=== PATIENT | female | born 1995 | race Caucasian/White ===

== ENCOUNTER 2021-04-17 06:36 | Inpatient (IN) | payer BC, SELFPAY ==
[2021-04-17] VITALS (103 sets, daily range): BP systolic 93–147; BP diastolic 53–119; PULSE 30–274; RESP 16; TEMP 35.9–37.7; O2SAT 72–100; BMI 30.2
--- NOTE | 2021-04-17 06:56 | PM.IMHP ---
H&P: HPI History of Present Illness Date/Time: 04/17/21 06:56 25-year-old 1 para 0 whose last menstrual period was 07/14/2020, EDC is 04/20/2021, confirmed by 10 week ultrasound presents at 39 and half weeks gestation for induction of labor secondary to elevated blood pressures. Baby has shown some decreased growth. heart tones have been reassuring. PIH labs will be drawn she is negative for group B strep Chief Complaint: mild hypertension at term Review of Systems Review of Systems: All systems reviewed & are unremarkable except as noted in HPI and below PMFSH Family History Family History Other No pertinent family history Social History Social History Substance use: current Spiritual care concerns: No Meds Home Medications and Allergies Home Medications Medication Instructions Recorded Confirmed Type No Home Medications 04/13/21 04/13/21 History Allergies Allergy/AdvReac Type Severity Reaction Status Date / Time No Known Allergies Allergy Verified 04/13/21 13:59 Exam Const: General: no acute distress Eyes: General: appearance normal, both eyes and all related structures Neck: Neck: supple and no JVD Thyroid: thyroid normal Resp: Effort & Inspection: normal respiratory effort Auscultation: clear to auscultation bilaterally Cardio: Rate: regular rate Rhythm: regular rhythm GI: Inspection: non-distended GI Palp: Yes Soft to palpation, No Tenderness to palpation present (GI) and No Guarding due to palpation present (GI) Auscultation: normal bowel sounds : External Female Exam: normal external appearance Speculum Exam - Vagina: normal appearance of the vagina Speculum Exam - Cervix: Cervical os closed ( cervix 2/80/1. AROM mac staining. FHTs reassuring) Bimanual exam- vagina & uterus: enlarged Skin: General skin exam: no rashes or lesions noted Extrem: General: normal to inspection and no edema Psych: Mental Status: mental status grossly normal Affect: normal affect Assessment and Plan Additional Plan impression: Term with mildly elevated blood pressure Plan: Medical for labor. Spontaneous vaginal delivery is expected. PIH labs will be drawn. She has an epidural candidate but is declining that if she can
[2021-04-17 07:35] LABS: Basophils Percent Auto 0.4 % (0.2-1.2); Eosinophils Percent Auto 0.4 % (0-4.4); Hematocrit 35.8 % (37.0-47.0); Hemoglobin 12.2 g/dL (12.0-15.0); Immature Granulocyte Absolute 0.03 K/mm3 (0.00-0.031); Immature Granulocyte Percent A 0.3 % (0-0.5); Lymphocytes Absolute Auto 2.64 K/mm3 (0.9-3.2); Lymphocytes Percent Auto 27.1 % (18.3-44.2); Mean Corpuscular HGB Conc 34.1 g/dl (32-36); Mean Corpuscular Hemoglobin 30.3 pg (26-34); Mean Corpuscular Volume 88.8 fl (80-100); Mean Platelet Volume 11.4 fl (7.4-10.4); Monocytes Absolute Auto 0.9 K/mm3 (0.1-0.6); Monocytes Percent Auto 8.9 % (2.6-8.5); Neutrophils Absolute Auto 6.1 K/mm3 (1.3-6.7); Neutrophils Percent Auto 62.9 % (45.5-73.1); Platelet Count Result 249 k/mm3 (150-375); Red Blood Count 4.03 M/mm3 (4.2-5.4); Red Cell Distribution Width 13.5 % (11.5-14.5); White Blood Count 9.8 K/mm3 (4.5-10.0)
[2021-04-17 07:47] LABS: Alanine Aminotransferase 15 U/L (4-35); Albumin Level 3.5 g/dL (3.5-5.1); Alkaline Phosphatase 180 U/L (38-126); Anion Gap 5 mmol/L (8-16); Aspartate Amino Transferase 20 U/L (14-36); Bilirubin,Total 0.3 mg/dL (0.2-1.3); Blood Urea Nitrogen 3 mg/dL (7-17); Calcium 8.8 mg/dL (8.4-10.2); Carbon Dioxide 22 mmol/L (22-30); Chloride 104 mmol/L (98-107); Estimated Glomerular Filt Rate > 60; Glucose 91 mg/dL (65-110); Potassium 3.7 mmol/L (3.4-5.0); Sodium 131 mmol/L (137-145)
[2021-04-17 07:50] LABS: Uric Acid 3.9 mg/dL (2.5-7.5)
[2021-04-17] MEDS: LACTATED RINGERS 1,000 ML 125 ML IV CONT ×2 (07:50→13:15)
[2021-04-17] MEDS: OXYTOCIN 30 UNITS/NS 500 ML 30 UNITS/500 ML BAG 6 UNITS IV CONT (07:56)
--- NOTE | 2021-04-17 08:41 | LDADM ---
This patient, Jose Salazar, was admitted to Labor/Delivery/Recovery 105 on 04/17/21 at 06:36. Plans for labor, pain management and were discussed with patient. Patient/family oriented to hospital policies and general routines including ID bracelet, bed and alarms, visiting hours, pain management, procedures, bathroom and other care routines, personal items, smoking policy, room service/diet and guest tray routines, security routines, and visiting hours. Patient/Family are encouraged to report perceived risks to care and to ask questions if they do not understand what they are told or what they should do. See OBIX for further documentation.
[2021-04-17 10:26] LABS: Rapid Plasma Reagin Non-Reactive (NonReactive)
--- NOTE | 2021-04-17 12:32 | PM.OBPNLAB ---
Pain Control Date/time seen: 04/17/21 12:32 Pain control: tolerating well and epidural Pelvic Exam Dilation (cm): 4 Effacement (%): 100 station: -1 Amniotic membrane status: Leaking Contractions Monitor mode: External
[2021-04-17] MEDS: fentaNYL CITRATE INJ (*CRX) 100 MCG/2 ML VIAL IV PUSH (13:14)
--- NOTE | 2021-04-17 13:44 | WPDANESEPPF ---
Anes - Initial Pre Proc Eval Date/Time: 04/17/21 13:44 Surgeon: Bryce Block MD Pre Op Diagnosis: Inducition of Labor Patient Data Age: 25 Gender: F Height: 1.6 m Weight: 77.5 kg Last Vital Signs Temp 35.9 C L 04/17/21 08:00 Pulse 63 04/17/21 13:43 BP 119/66 04/17/21 13:43 Pulse Ox 98 04/17/21 13:40 Allergies Allergy/AdvReac Type Severity Reaction Status Date / Time No Known Allergies Allergy Verified 04/13/21 13:59 Home Medications Medication Instructions Recorded Confirmed Type No Home Medications 04/13/21 04/13/21 History Laboratory Tests 04/17/21 04/17/21 04/17/21 07:23 07:23 07:23 WBC 9.8 K/mm3 K/mm3 (4.5-10.0) RBC 4.03 M/mm3 L M/mm3 (4.2-5.4) Hgb 12.2 g/dL g/dL (12.0-15.0) Hct 35.8 % L % (37.0-47.0) MCV 88.8 fl fl (80-100) MCH 30.3 pg pg (26-34) MCHC 34.1 g/dl g/dl (32-36) RDW 13.5 % % (11.5-14.5) Plt Count 249 k/mm3 k/mm3 (150-375) MPV 11.4 fl H fl (7.4-10.4) Immature Gran % (Auto) 0.3 % % (0-0.5) Neut % (Auto) 62.9 % % (45.5-73.1) Lymph % (Auto) 27.1 % % (18.3-44.2) [place] % (Auto) 8.9 % H % (2.6-8.5) Eos % (Auto) 0.4 % % (0-4.4) Baso % (Auto) 0.4 % % (0.2-1.2) Lymph # (Auto) 2.64 K/mm3 K/mm3 (0.9-3.2) [place] # (Auto) 0.9 K/mm3 H K/mm3 (0.1-0.6) Eos # (Auto) 0.0 K/mm3 K/mm3 (0-0.3) Baso # (Auto) 0.0 K/mm3 K/mm3 (0.0-0.1) Abs Immat Gran (auto) 0.03 K/mm3 K/mm3 (0.00-0.031) Absolute Neuts (auto) 6.1 K/mm3 K/mm3 (1.3-6.7) Absolute Nucleated RBC 0.0 K/mm3 K/mm3 (0.0-0.012) Nucleated RBC % 0.0 % % (0.0-0.2) Sodium Potassium Chloride Carbon Dioxide Anion Gap BUN Creatinine Estim Creat Clear Calc Estimated GFR Glucose Uric Acid 3.9 mg/dL mg/dL (2.5-7.5) Calcium Total Bilirubin AST ALT Alkaline Phosphatase Total Protein Albumin RPR Non-reactive (NonReactive) Blood Type Antibody Screen 04/17/21 04/17/21 07:23 07:23 WBC RBC Hgb Hct MCV MCH MCHC RDW Plt Count MPV Immature Gran % (Auto) Neut % (Auto) Lymph % (Auto) [place] % (Auto) Eos % (Auto) Baso % (Auto) Lymph # (Auto) [place] # (Auto) Eos # (Auto) Baso # (Auto) Abs Immat Gran (auto) Absolute Neuts (auto) Absolute Nucleated RBC Nucleated RBC % Sodium 131 mmol/L L mmol/L (137-145) Potassium 3.7 mmol/L mmol/L (3.4-5.0) Chloride 104 mmol/L mmol/L (98-107) Carbon Dioxide 22 mmol/L mmol/L (22-30) Anion Gap 5 mmol/L L mmol/L (8-16) BUN 3 mg/dL L mg/dL (7-17) Creatinine 0.60 mg/dL L mg/dL (0.7-1.0) Estim Creat Clear Calc Not Reportable Estimated GFR > 60 (59 - ) Glucose 91 mg/dL mg/dL (65-110) Uric Acid Calcium 8.8 mg/dL mg/dL (8.4-10.2) Total Bilirubin 0.3 mg/dL mg/dL (0.2-1.3) AST 20 U/L U/L (14-36) ALT 15 U/L U/L (4-35) Alkaline Phosphatase 180 U/L H U/L (38-126) Total Protein 6.0 g/dL L g/dL (6.3-8.2) Albumin 3.5 g/dL g/dL (3.5-5.1) RPR Blood Type A Positive Antibody Screen Negative Patient hx anesthesia problems: none Family hx anesthesia problems: none Results Review: All pre-operative results and documents have been reviewed as part of the pre-operative evaluation. PMFSH P
[2021-04-17 16:34] LABS: Amphetamine Screen Urine Negative (Negative); Barbiturate Screen Urine Negative (Negative); Benzodiazepines Screen Urine Negative (Negative); Cannabinoid Screen Urine Positive (Negative); Cocaine Screen Urine Negative (Negative); Methadone Screen Urine Negative (Negative); Opiate Screen Urine Negative (Negative); Phencyclidine Screen Urine Negative (Negative)
--- NOTE | 2021-04-17 17:34 | P.PCNOB_ITS ---
OB - Delivery Note Procedure Delivery date: 04/17/21 Procedure: mil events: Labor Induction Intrapartal events: None Induction method: AROM Delivery augmentation: pitocin Delivery monitor: external FHT Route of delivery: Episiotomy description: None Laceration Description: None Specimen: No Quantitative Blood Loss (ml): 59 Anesthesia type: Epidural Disposition: floor [place] Baby Date of : 04/17/21 Time of : 17:27 Weeks of gestation at delivery: 39 gender: Female presentation: vertex position: Right Occiput Anterior Placenta delivery description: Spontaneous cord vessel description: 3 Vessels and Delayed Cord Clamping score one minute: 8 score five minutes: 9
[2021-04-17] MEDS: BENZOCAINE 20% AER SPR (*SP) 56 GM CAN 1 SPRAY TOPICAL (19:44)
[2021-04-17] MEDS: WITCH HAZEL 40 PADS 1 PAD TOPICAL (19:44)
--- NOTE | 2021-04-17 22:17 | PC.NURSE ---
This patient, Jose Salazar, was received from Labor and Delivery on 04/17/21 at 1952. Patient/family oriented to unit policies and routines
[2021-04-18 00:30] VITALS: BP 106/66; PULSE 60; RESP 16; TEMP 37.1; O2SAT 99
[2021-04-18 05:51] VITALS: BP 116/76; PULSE 83; RESP 16; TEMP 36.4; O2SAT 99
[2021-04-18 06:00] LABS: Hematocrit 32.5 % (37.0-47.0); Hemoglobin 10.9 g/dL (12.0-15.0)
[2021-04-18] MEDS: ACETAMINOPHEN 325 MG TABLET 650 MG PO (06:05)
--- NOTE | 2021-04-18 07:27 | WPDANLDPN2 ---
Anes-Prog Note L&D Date/Time: 04/18/21 07:27 Comfortable throughout: labor and delivery Neuraxial method: epidural Epidural/Spinal procedure site: clean & non-tender Neuro status: Neuro function grossly intact. Cardiovascular status: normal Respiratory status: normal Airway patency: baseline Mental status: baseline Post-Op hydration status: normal Vital Signs: Last Vital Signs Temp 36.4 C 04/18/21 05:51 Pulse 83 04/18/21 05:51 Resp 16 04/18/21 05:51 BP 116/76 04/18/21 05:51 Pulse Ox 99 04/18/21 05:51 Pain score (VAS): 0 I/O: Intake & Output 04/17/21 04/17/21 04/18/21 15:59 23:59 07:59 Intake Total 1000 1500 Output Total 134 Balance 1000 1366 Post-procedural complaints: none Patient feedback: Patient satisfied with anesthetic care.
--- NOTE | 2021-04-18 07:30 | PM.OBPNVD ---
OB - PN: Subj Subjective Date/time seen: 04/18/21 07:30 Patient comments: no complaints and pain well controlled baby status: doing well OB - PN: Obj Data Labs CBC & Chem 7: 04/18/21 05:06 04/17/21 07:23 Labs: Laboratory Results - last 24 hr 04/17/21 04/17/21 04/17/21 07:23 07:23 07:23 WBC 9.8 RBC 4.03 L Hgb 12.2 Hct 35.8 L MCV 88.8 MCH 30.3 MCHC 34.1 RDW 13.5 Plt Count 249 MPV 11.4 H Immature Gran % (Auto) 0.3 Neut % (Auto) 62.9 Lymph % (Auto) 27.1 [place] % (Auto) 8.9 H Eos % (Auto) 0.4 Baso % (Auto) 0.4 Lymph # (Auto) 2.64 [place] # (Auto) 0.9 H Eos # (Auto) 0.0 Baso # (Auto) 0.0 Abs Immat Gran (auto) 0.03 Absolute Neuts (auto) 6.1 Absolute Nucleated RBC 0.0 Nucleated RBC % 0.0 Sodium Potassium Chloride Carbon Dioxide Anion Gap BUN Creatinine Estim Creat Clear Calc Estimated GFR Glucose Uric Acid 3.9 Calcium Total Bilirubin AST ALT Alkaline Phosphatase Total Protein Albumin Urine Opiates Screen Urine Methadone Screen Ur Barbiturates Screen Ur Phencyclidine Scrn Ur Amphetamine Screen U Benzodiazepines Scrn Urine Cocaine Screen U Cannabinoids Screen RPR Non-reactive Blood Type Antibody Screen 04/17/21 04/17/21 04/17/21 07:23 07:23 15:01 WBC RBC Hgb Hct MCV MCH MCHC RDW Plt Count MPV Immature Gran % (Auto) Neut % (Auto) Lymph % (Auto) [place] % (Auto) Eos % (Auto) Baso % (Auto) Lymph # (Auto) [place] # (Auto) Eos # (Auto) Baso # (Auto) Abs Immat Gran (auto) Absolute Neuts (auto) Absolute Nucleated RBC Nucleated RBC % Sodium 131 L Potassium 3.7 Chloride 104 Carbon Dioxide 22 Anion Gap 5 L BUN 3 L Creatinine 0.60 L Estim Creat Clear Calc Not Reportable Estimated GFR > 60 Glucose 91 Uric Acid Calcium 8.8 Total Bilirubin 0.3 AST 20 ALT 15 Alkaline Phosphatase 180 H Total Protein 6.0 L Albumin 3.5 Urine Opiates Screen Negative Urine Methadone Screen Negative Ur Barbiturates Screen Negative Ur Phencyclidine Scrn Negative Ur Amphetamine Screen Negative U Benzodiazepines Scrn Negative Urine Cocaine Screen Negative U Cannabinoids Screen Positive A RPR Blood Type A Positive Antibody Screen Negative 04/18/21 05:06 WBC RBC Hgb 10.9 L Hct 32.5 L MCV MCH MCHC RDW Plt Count MPV Immature Gran % (Auto) Neut % (Auto) Lymph % (Auto) [place] % (Auto) Eos % (Auto) Baso % (Auto) Lymph # (Auto) [place] # (Auto) Eos # (Auto) Baso # (Auto) Abs Immat Gran (auto) Absolute Neuts (auto) Absolute Nucleated RBC Nucleated RBC % Sodium Potassium Chloride Carbon Dioxide Anion Gap BUN Creatinine Estim Creat Clear Calc Estimated GFR Glucose Uric Acid Calcium Total Bilirubin AST ALT Alkaline Phosphatase Total Protein Albumin Urine Opiates Screen Urine Methadone Screen Ur Barbiturates Screen Ur Phencyclidine Scrn Ur Amphetamine Screen U Benzodiazepines Scrn Urine Cocaine Screen U Cannabinoids Screen RPR Blood Type Antibody Screen OB - PN A/P Plan day: 1 Plan: routine care Time Spent With Patient Time: Total time spent is greater than 50% in coordination of care (as documented) at patient's floor/unit and/or counseling patient: Time with patient: less than 15 minutes Review of Systems Review of Systems: All systems reviewed & are unremarkable except as noted in HPI and below Exam Const: General: no acute distress Eyes: General: appearance normal, both eyes and all related structures Neck: Neck: supple and no JVD Thyroid: thyroid normal Resp: Effort & Inspection: normal respiratory effort Auscultation: clear to ausculta
[2021-04-18 08:10] VITALS: BP 108/73; PULSE 80; RESP 16; TEMP 36.8; O2SAT 98
--- NOTE | 2021-04-18 08:40 | PC.NURSE ---
Consult with pt., mother reports infant has been sleepy and not maintaining a deep latch or feeding consistently. Mother has supplemented last feeding 7mls EBM. Mother has EBM she brought to the hospital with her, from pumping over the weekend before delivery. Mother called out for assist with feeding. Infant is able to freely thrust tongue past gum ridge and flange both lips. Skin is intact on both nipples, no redness and bruising noted. Reviewed feeding cues, frequencies, duration of feedings, feeding elimination flow sheet, and signs of adequate intake. Demonstrated stimulation techniques to wake infant for feeding. Assisted with infant to breast. Reviewed positioning/alignment in football, holding breast in ?C? hold and guided asymmetrical latch on. Reviewed rational for each. able to latch correctly within a few attempts. Infant nursed sleepily with a few steady draws and occasional swallowing noted followed with long pausing then releasing latch. Infant was awoken and returned to breast with same pattern several times during the session. Reviewed signs of a correct latch, effective nursing and suck swallow ratio. Suggested mother stimulate while feeding to increase stimulation for milk supply, for increased intake and to assist with maintaining deep latch. would slip to shallow latch causing tenderness. Demonstrated how to adjust latch more deeply while feeding as needed. Mother reports she can feel the difference in latch with no tenderness. Mother is able to express large amounts of colostrum into infants mouth at feedings. Suggested supplement her EBM of 10 mls each feeding until infant is feeding more consistently. Mother has been pumping after each feeding/attempt using her own pump Nipple care reviewed of lanolin after feedings, warm compresses as needed. Instructed mother to call out for RN assistance if she is unable to latch infant for feeding or she has discomfort with nursing. Instructed feeding should be initiated three hours from start of last feeding or if feeding cues are noted before. Mother voiced understanding of information shared.
[2021-04-18] MEDS: MULTIVIT/MIN/PREN/FOL AC/IRON TABLET 1 TAB PO (08:49)
--- NOTE | 2021-04-18 12:04 | PCCCNOTE ---
Care Coordination Consult: Received consult for marijuana use during . Met with pt. and EZEKIEL Brunner. This is their first baby. They have all necessary supplies at home including a car seat, crib, clothing, diapers, and breast pump. She has a supportive family to assist if needed. resources provided. Pt. reports she plans to use [facility] services at discharge. Pt. reports she recreationally uses marijuana, does this to stimulate her appetite. Predominantly uses marijuana edibles. She denies any other substance use. Denies a reliance on marijuana. Reports she has information a bedside that was provided by RN regarding and marijuana usage. Baby also tested positive for marijuana in urine, meconium is pending. Submitted online DCFS report # [id number].
[2021-04-18 12:16] VITALS: BP 111/75; PULSE 70; RESP 18; TEMP 36.3; O2SAT 98
[2021-04-18] MEDS: IBUPROFEN 600 MG TABLET PO (13:02)
--- NOTE | 2021-04-18 13:10 | PC.NURSE ---
Consult with pt., mother is syringe feeding infant EBM upon entering. remains sleepy and taking small amounts. Parents have been using a pacifier as tongue/suck training. Suggested parents use a nipple and pace feed infant EBM after breastfeedings. Reviewed at breast 15-20 minutes if ineffective suckling, then pace feed EBM and mother should pump 15 minutes. Reviewed to allow to draw nipple in deeply and slowly as to not gag, allow a few good draws on nipple then remove and rest, continuing pace feeding until has taken at least 10mls Mother reports she is using her Spectra pump without issue.
[2021-04-18 16:00] VITALS: BP 130/68; PULSE 65; RESP 20; TEMP 36.7; O2SAT 99
[2021-04-19 09:41] VITALS: BP 133/83; PULSE 78; RESP 20; TEMP 36.5; O2SAT 99
--- NOTE | 2021-04-19 14:52 | PM.DS ---
DS: Admitting Diagnosis Discharge Date 04/18/21 Admitting Diagnosis term iup DS: Summary Hospital Course Hospital Course: unremarkable Time Spent with Patient Time attestation: Total time spent providing and/or coordinating discharge services: Exam Const: General: no acute distress Eyes: General: appearance normal, both eyes and all related structures Neck: Neck: supple and no JVD Thyroid: thyroid normal Resp: Effort & Inspection: normal respiratory effort Auscultation: clear to auscultation bilaterally Cardio: Rate: regular rate Rhythm: regular rhythm GI: Inspection: non-distended GI Palp: Yes Soft to palpation, No Tenderness to palpation present (GI) and No Guarding due to palpation present (GI) Auscultation: normal bowel sounds : General: Yes bladder normal to palpation External Female Exam: normal external appearance Speculum Exam - Vagina: normal vaginal discharge and No vaginal bleeding Speculum Exam - Cervix: nontender Bimanual exam- vagina & uterus: bladder normal to palpation and No Cervical tenderness present OB/external & speculum: No vaginal bleeding Skin: General skin exam: no rashes or lesions noted Extrem: General: normal to inspection and no edema Psych: Mental Status: mental status grossly normal Affect: normal affect Discharge Plan Discharge Attending physician on discharge: Bryce Block Consulting providers: Edson Coello Discharging Clinician: Timothy Gaona Patient Disposition: Home, Self-Care Activity: pelvic rest Diet: regular Discharge Instructions: Education: Mom and Baby Guide Given to: Mother Follow-Up: Call your delivering provider's office for an appointment to be seen in: 1 Week Mom and baby should come to the [facility] for the follow-up appointment. Appointment Date/Time: April 19, 2021 at 10:00 am What to expect at your follow-up visit: Blood Pressure Check Physical Assessment Call [phone] if you are unable to keep your appointment time. BREAST CARE: * Wear a snug supportive bra. * For engorgement discomfort: Breast Feeding: * Apply warm moist washcloths * Express milk as needed to relieve engorgement * Wear loose clothing * For sore nipples: * Identify correct latch-on * Apply warm moist washcloths before and after nursing * Air dry nipples after nursing * May apply Lansinoh cream to nipples EPISIOTOMY/PERINEAL CARE: * Until bleeding stops, use your dary bottle after urinating * Change your pad frequently throughout the day * No tub baths until seen by your physician - You may shower ACTIVITY: * Rest as much as possible. * Do not exercise or lift anything heavier than your baby (such as laundry or other children.) * Avoid stairs or driving as much as possible. * Do not put anything into the vagina. No douching, tampons, or sexual activity until seen by physician. NOTIFY PHYSICIAN IF YOU HAVE ANY QUESTIONS OR IF ANY OF THE FOLLOWING SYMPTOMS OCCUR: * If your perineum becomes red, swollen, or more painful than what you have experienced in the hospital. * If your vaginal bleeding becomes foul smelling. * If your vaginal bleeding becomes more heavy than a period or if your bleeding changes from pink to bright red. However, you may pass an occasional walnut-sized clot once or twice for the first week . * If you experience a sharp, shooting pain in you calves. * If you discover a hard, reddened area on your breast or if you experience flu-like symptoms. DIET: * Eat regular, well-balanced meals. * Drink plenty of fluids daily. If , drink to thirst. Stand Alone Forms: General Discharge Information Follow-up/Referrals: Bryce Block MD [Physician] - Discharge Medications: No Action No Home Medications RF: 0 Date of admission: 04/17/21 06:36 Primary Care
== END 2021-04-18 20:44 | disposition home or self-care (01) | DRG 807 ==
LOC: ANHOB2 04-18 19:12 → ANHLDR 04-19 11:22 → ANHOB2 04-19 11:22
PROVIDERS: Admitting Provider Obstetrics & Gynecology; Visit Provider Student in an Organized Health Care Education/Training Program
DX: O13.4 Gestational [pregnancy-induced] hypertension without significant proteinuria, complicating childbirth (principal); Z37.0 Single live birth; O77.0 Labor and delivery complicated by meconium in amniotic fluid; Z3A.39 39 weeks gestation of pregnancy
CPT/HCPCS: 36415; 80053; 80307; 84550; 85014; 85018; 85025; 86592; 86850; 86900; 86901; A9270; J2590; J2795; J3010; J7120